=== PATIENT | female | born 1960 | race Caucasian/White ===

== ENCOUNTER 2019-03-15 17:00 | Inpatient (IN) | payer OTHER, MEDICAID ==
[~2019-03-15] VITALS: Ht 162.6 cm; Wt 53.2 kg
[2019-03-15 17:10] VITALS: BP 142/82
[2019-03-15 17:49] LABS: ABSOLUTE NEUTROPHILS 5.1 thou/uL (1.4-8.2); BASOPHILS 0.6 % (0.0-2.0); EOSINOPHILS 0.6 % (0.0-3.0); HEMATOCRIT 40.6 % (37.0-47.0); HEMOGLOBIN 13.8 gm/dL (12.0-15.0); LYMPHOCYTES 22.4 % (24.0-44.0); MCH 33.1 pg (26.0-34.0); MCHC 33.9 g/dL (28.0-37.0); MCV 97.8 fL (80.0-100.0); MONOCYTES 7.5 % (1.0-8.0); PLATELET COUNT 238 thou/uL (150-400); POLYS 68.9 % (36.0-66.0); RBC 4.15 mil/uL (4.20-5.00); RDW 13.3 % (10.5-14.5); WBC 7.4 thou/uL (4.0-11.0)
[2019-03-15 17:52] LABS: CALCIUM 9.2 mg/dL (8.5-10.1); CREATININE 0.6 mg/dL (0.6-1.0)
[2019-03-15 17:56] LABS: URINE BILIRUBIN NEGATIVE (Negative); URINE BLOOD NEGATIVE (Negative); URINE CLARITY CLEAR; URINE COLOR YELLOW; URINE GLUCOSE-RANDOM* NEGATIVE (Negative); URINE KETONES NEGATIVE (Negative); URINE LEUKOCYTES-REFLEX NEGATIVE (Negative); URINE NITRITE-REFLEX NEGATIVE (Negative); URINE PROTEIN (DIPSTICK) NEGATIVE (Negative); URINE SPECIFIC GRAVITY 1.025 (1.005-1.035)
[2019-03-15 17:58] LABS: ALBUMIN 4.4 g/dL (3.4-5.0); DIRECT BILIRUBIN 0.2 mg/dL (<0.1-0.2); TOTAL BILIRUBIN 0.9 mg/dL (<0.1-1.0); TOTAL PROTEIN 7.3 g/dL (6.4-8.2)
[2019-03-15 19:04] VITALS: BP 133/87
[2019-03-15 19:59] VITALS: BP 99/74
--- NOTE | 2019-03-16 04:54 | NUR ---
ARRIVED ON [facility] FLOOR @ 19:15 VIA W/C ACCOMPANIED BY ED PCN STAFF. STOOD AND TRANSFERRED TO BED WITH X2 ASSIST. CONFUSED AND ORIENTED TO SELF ONLY. REPEATEDLY ASKS WHERE HER FATHER AND WHERE HER ARE. ANXIOUS AND WORRIED. WHEN INFORMED THAT SHE IS IN [facility], SHE ASKS, AM I DYING? WITH ONE ON ONE REASSURANCE, CALMS DOWN, ONLY TO REPEAT THE SAME QUESTIONS A FEW MINUTES LATER. UNABLE TO SIGN HERSELF IN DUE TO CONFUSION AND DEMENTIA. CALL PLACED TO AND MESSAGE LEFT ON HOUSE PHONE REQUESTING HE CALL THE UNIT. WILL CALL HIM AGAIN @ 0600. HS MEDS PROVIDED CRUSHED IN ICE CREAM. TOOK THE CRUSHED MEDS AND THEN ON THE LAST SPOONFUL, BIT THE SPOON TO SHOW HER ANGER. TRIED TO STRIKE OUT AND HIT STAFF. HYDROCODONE 2.5MG/ACETAMINOPHEN 325 PROVIDED FOR BACK PAIN OF 08/17 @ 0030. FOLLOW UP ASSESSMENT SHOWED SLEEPING. BED IN LOW POSITION, BED ALARM SET, WILL CONTINUE TO MONITOR Q 12 MINUTES FOR PATIENT SAFETY.
[2019-03-16 09:21] VITALS: BP 119/47
--- NOTE | 2019-03-16 12:43 | NUR ---
0715 RESUMMED CARE FROM OVERNIGHT SHIFT, PATIENT IN DAY ROOM TALKING OUT LOUD ABOUT KILLING SISTER AND PARENTS. PATIENT ATE SOME BREAKFAST AND SPIT MEDICATION OUT OF MOUTH ONTO THE FLOOR. DR. GONZALEZ ORDERED OLANZAPINE 2.5 MG IM. THE NURSE FROM [facility] CALLED TO CHECK ON PATIENT AND TOLD ME TO PUT HER MEDICATION IN ICE CREAM CRUSHED. PATIENT GOT A SHOWER THIS MORNING TO HELP CALM HER AND FOR HYGEINE. STAFF AND I PUT PATIENT IN W/C DUE TO HER UNSTEADY GAIT. WILL CONTINUE TO MONITOR PATIENT FOR BEHAVIORS AND SAFETY.
--- NOTE | 2019-03-16 17:00 | NUR ---
RAMY spoke with pt's who gave a background hx of pt. She was diagnosed with dementia in 2016. He also said they never had children, but she has a close relationship with her siblings. He mentioned that carbohydrates tend to irritate pt, but protein calms her. RAMY scheduled a family meeting for 03/20 @ 1400 with him. SW team will continue to follow pt during her stay on this unit.
[2019-03-16 19:37] VITALS: BP 119/73
--- NOTE | 2019-03-17 00:01 | NUR ---
Care assumed of patient at 1915: Patient seated in w/c in dayroom at start of shift. Patient calm, pleasant and cooperative. Patient responds to name being said. Unable to state current location, date or situation. Speech is disorganized with flight of ideas. Patient had difficulty making eye contact with nurse during assessment. Unable to answer questions appropriately due to poor focus and concentration. No s/s of pain or discomfort. No s/s of SI/HI/AH/VH, paranoia or delusional behaviors. Patient took HS medication crushed with ice cream. Required to be fed but ate 100%. Patient started to push nurse away once but was re-oriented on where she was and became calm. Patient cooperative with nursing assessment and vital signs. No aggression or screaming shown observed. Patient was able to be transferred to bed, incontinent care provided. Patient resting quietly in bed.
[2019-03-17 08:00] VITALS: BP 135/84
--- NOTE | 2019-03-17 09:00 | NUR ---
Assumed care of patient this am. Patient in wheel chair with lap mirna on. Patient confused, not making sense when answering questions. Patient takes medications crushed with pudding or ice cream. Patients affect flat. Patient becomes irritable with cares. Patients assessment shows clear breath sounds, active bowel sounds, and s1 s2 heard with auscultation.
[2019-03-17 19:30] VITALS: BP 141/66
--- NOTE | 2019-03-17 21:58 | NUR ---
ASSUMED CARE ON 03/17/18 @ 19:15 FROM OFFGOING DAY SHIFT NURSE. IN DAY ROOM SITTING IN W/C WITH LAP OWEN. WHEN SPOKEN TO, SHE MAKES NONSENSICAL VERBAL SOUNDS. OCCASIONALLY ASKS WHERE IS MY SISTER......FATHER. ALLOWED ASSESSMENT, FINDINGS W/N/L, TOOK MEDS CRUSHED IN VANILLA PUDDING. REFUSED TO BE TOILETED, TRANSFERRED TO BED AND GIVEN INCONTINENT CARE. WITH CARES BECAME VERBALLY ABUSIVE AND HIT AT STAFF. IN BED WITH BED IN LOW POSITION, BED ALARM SET, WILL CONTINUE TO MONITOR Q 12 MINUTES FOR PATIENT SAFETY.
[2019-03-17 22:14] VITALS: BP 141/66
--- NOTE | 2019-03-18 05:24 | NUR ---
SLEPT 9 HOURS
--- NOTE | 2019-03-18 12:42 | NUR ---
PATIENT HAS BEEN UP AND OUT ON THE UNIT, SITTING IN WHEELCHAIR WITH LAPBUDDY IN PLACE FOR SAFETY. PATIENT IS ALERT, FORGETFUL, VERY CONFUSED, SPEACH IS NONSENSICAL. CONSTATANTLY STATES "I WANT TO FIND MY , I GUESS HE IS . YOU ARE A MAN, I WANT TO KILL MY SISTER". PATIENT REQUIRES ASSIST OF STAFF TO COMPLETE ADL. PATIENT IS INCONTINENT OF B&B, INCONTINENT CARE PROVIDED BY STAFF. PATIENT TOOK ALL MORNING MEDICATION CRUSHED IN PUDDING WITHOUT DIFFICULTY. PATIENT IS EATING MEALS, AND DRINKING FLUID FAIRLY WELL, FED BY STAFF. PATIENT DENIES SUICIDAL IDEATION. MOOD IS FRUSTRATED AND SAD. AFFECT IS BLUNTED. PATIENT CONSTANTLY ATTEMPTING TO GET OUT OF WHEELCHAIR UNASSISTED, REQUIRES CNNSTANT REDIRECTION. NO AGGRESSION OR AGITATION NOTED AT THIS TIME, NO SIGN OF ACUTE DISTRESS NOTED. WILL CONTINUE TO REDIRECT, AND MONITOR FOR SAFETY. SAFETY.
[2019-03-18 21:00] VITALS: BP 96/75
--- NOTE | 2019-03-19 04:13 | NUR ---
Assumed care of pt @ 1900. Pt calm et cooperative this shift. Denies SI/HI. Continuously calling out for this shift. Ambulates via w/c. Took medications crushed in ice cream this shift. VSWNL. Health assessment with no abnormalities other than previously recorded. Currently resting in bed with eyes closed. Will continue to monitor per protocol.
[2019-03-19 07:36] VITALS: BP 103/75
--- NOTE | 2019-03-19 12:42 | NUR ---
ASSUMED CARE OF PATIENT AT 0700 - PATIENT UP ON UNIT MOST OF THE DAY. DURING MORNING BREAKFAST ANXIOUS AND RESTLESS AND VOICING HER CONCERNS. DIFFICULT TO UNDERSTAND AT TIMES - WAS FIXATED ON SEEING HER . PATIENT RESPONDS TO EXPLANATION - MAY HAVE TO REPEAT REASSURANCE DUE TO FORGETFULNESS. PATIENT'S MEDICATION ADMINISTERED CRUSHED IN ICE CREAM. TOLERATED WELL AND ENJOYED. PATIENT'S VISITED AND WENT VERY WELL. PATIENT SO HAPPY AND ENJOYED SEEING -
--- NOTE | 2019-03-19 18:00 | H ---
[facility] [place] [address] HISTORY AND PHYSICAL Name: JOSÉ MIGUEL CHAPMAN Room #: 521A-A ADM IN M.R.#: [id number] Admission: 03/15/19 Attend Phys: Moy Donis DO Discharge: Date of : 56 Report #: [id number] THIS REPORT FOR: //name// CC: Moy Kenney DATE OF SERVICE: 03/15/2019 ATTENDING PHYSICIAN: Moy Donis DO. FRESH MEAT GRADER: Dr. Nick Enciso. REASON FOR ADMISSION: The patient in memory care at [facility] requiring a 1:1 for safety. Had Her hands around staf, forced herself on the ground and wants to lay down, thinks back is broken. HPI: Apparently, she was taken off Seroquel a week ago by nurse practitioner. Her , Ian Chapman is her DPOA, #[phone]. She was diagnosed with early Alzheimer's dementia in 2016. She stuck seeing Dr. Genaro Moreno at . Apparently, her primary care physician is Dr. Kenney. She was at [facility] in 01/2019. This is a 58-year-old female with a tragic early Alzheimer's disease, quite advanced at this point. remembers symptomatology going back about a decade ago. 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 The patient resides in a memory care at the [facility]. According to their records and some accompanying records from places like [facility], the patient has had a progressive deteriorating course. In an event that a couple of months back she had been taken to a neurologist, Ailyn Carroll, who changed medications and after that the patient has had aggressive behaviors as taken from 12/30/2018 Psychiatric note. The patient has been treated by at [facility] and Dr. Justo Xie at . Dr. Eric Monique apparently has been her primary care physician in the past. PAST MEDICAL HISTORY: Includes colonoscopy which showed hyperplastic colonic polyps and internal hemorrhoids; dementia dating back to 01/2010; uterine cancer status post hysterectomy in 2013; history of 5 heavy radiation treatments; history of allergies of asthma; recurrent urinary tract infections; urinary incontinence secondary to advanced dementia. PAST SURGICAL HISTORY: Polypectomy and hysterectomy. [address] [address] HISTORY AND PHYSICAL Name: JOSÉ MIGUEL CHAPMAN Room #: 521A-A [facility] IN .R.#: [id number] Admission: 03/15/19 Attend Phys: Moy Donis DO Discharge: Date of : 56 Report #: [id number] ALLERGIES: Documented TETRACYCLINE. PERSONAL HISTORY: for 30 years to her . No children. Denied history of tobacco, alcohol or recreational drug use. There is no other significant family history of Alzheimer's disease. She also has a history of Clostridium difficile. MEDICATIONS: [facility] are as follows: Ativan 0.5 mg 3 times a day, alprazolam 0.5 mg 1 time order, Depakote Sprinkles 125 mg capsule delayed release twice per day, hydrocodone 5/325 half tab q. 4 for pain, melatonin 3 mg at bedtime, fluticasone 50 mcg p.o. daily, donepezil 23 mg daily, folic acid 400 mcg p.o. daily, MiraLax 17 gram dose daily, bisacodyl 5 mg delayed release daily, B complex vitamin, Buspirone 10 mg by mouth 3 times a day, calcium carbonate 500 mg daily, memantine 10 mg by mouth twice per day. Some other ones, trazodone 50 mg at bedtime, omeprazole 20 mg daily, vitamin C 500 mg p.o. daily. The most recent notes were continues from 03/15/2019continues to have increased anxiety after administration of alprazolam about an hour when she was awake. She continued to scream and growl. Gait was unsteady, will not use wheelchair, although she believes she needs to lay down when she is already lying in bed. Records from Emergency Room visit yesterday: CBC was within normal limits except segmented neutrophils 68.9, lymphocytes 22.4, RBC 4.15. Chemistries: Sodium 140, potassium 4.0, chloride 104, bicarbonate 29, anion gap 9, BUN 16, creatinine 0.6, estimated GFR 102, glucose 104, calcium 9.2. Total bilirubin 0.9, direct bilirubin 0.2, AST 11, ALT 25, alkaline phosphatase 62, total protein 7.3, albumin 4.4. Urinalysis within normal limits. PHYSICAL EXAMINATION: VITAL SIGNS: Today, temperature 37.1, pulse 72, respirations 18, BP 119/47. GENERAL: Kyphotic, at times unsteady gait, but is ambulatory on her feet. MENTAL STATUS EXAMINATION: This is a well-developed, malodorous, ill-appearing female appearing much older than stated age. Attention limited. Concentration impaired. Speech slow with word finding difficulties. Mood, unspecified constricted, congruent. Denied SI or HI. Denied auditory, visual, or tactile hallucinations. In terms of thought content, believes ____ her is and believes that her father is here. She is grossly disorganized. Fund of knowledge well below average. FORMULATION: A 58-year-old female admitted for behavioral disturbance in the setting of aggressive early Alzheimer's dementia. [facility] [address] [place] [address] HISTORY AND PHYSICAL Name: JOSÉ MIGUEL CHAPMAN Room #: 521A-A ADM IN M.R.#: [id number] Admission: 03/15/19 Attend Phys: Moy Donis, Discharge: Date of : 56 Report #: [id number] PLAN: Evaluate, stabilize, obtain collateral. We will start her on olanzapine 2.5 mg b.i.d. with IM backup. Other adjustments I have already made is continue vitamin D for now, continue omeprazole, continue losartan 50 mg daily, folic acid 400 mg daily, Flonase. I discontinued donepezil due to the advanced AD, the calcium I continued for now, continued vitamin C, discontinued lorazepam, discontinued buspirone. ESTIMATED LENGTH OF STAY: 10-14 days. STRENGTHS: She is insured. She has supportive . WEAKNESSES: Aggressive related dementia I will give Dr. Kenney a call and see if he wants to participate in her care. Also from the ER, they got a review of systems: CONSTITUTIONAL: Denied fever, chills, malaise, unexplained weight change. EYES: Denies eye pain, visual change or discharge. HENT: Denies hearing changes, ear drainage, ear infections, ear pain, neck pain or neck stiffness. RESPIRATORY: Denies cough, shortness of breath, hemoptysis or respiratory distress. CARDIOVASCULAR: Denies chest pain, chest pain with exertion or edema. GASTROINTESTINAL: Denies abdominal pain, nausea, vomiting or diarrhea. GENITOURINARY: Denies burning, frequency or dysuria. MUSCULOSKELETAL: Denies back pain, joint pain, muscle weakness or myalgias. SKIN: Denies rash. NEUROLOGIC: Denies weakness, headache, loss of consciousness. I double checked her this morning and she continued to deny them. Weight 63.5 kilos. No EKG was done. <ELECTRONICALLY SIGNED> By: Moy Donis DO 03/19/19 1800 [id number] Moy Donis DO /nt
[2019-03-19 19:56] VITALS: BP 119/48
[2019-03-19 21:00] VITALS: BP 119/48
--- NOTE | 2019-03-20 04:02 | NUR ---
2000 Pt. sitting in Day Room conversing with other patients and staff. Pt.'s affect is flat and she appears to be anxious. She is asking "where her is". Pt. was reassured that she is okay and that her was okay and would be back tomorrow to visit. 2099 Pt. took meds crushed and in strawberry ice cream. Pt. was able to swallow meds without difficulty and no choking or coughing was noted. 2229 Pt. requested to go to bed and was assisted getting from W/C to bed and getting ready for overnight hours. 2400 Pt. resting quietly with eyes closed. Respirations even and on-labored. No signs or symptoms of distress noted.
[2019-03-20 09:03] VITALS: BP 118/65
[2019-03-20 09:05] VITALS: BP 114/42
--- NOTE | 2019-03-20 12:12 | NUR ---
HAS APPEARED RESTLESS/IRRITABLE WITH EPISODES OF YELLING AND AGITATION. WHEN GIVEN AM LIQUID GERD MEDICINE SPIT IT AT THIS NURSE YELLING "THAT TASTES LIKE SHIT" DURING 1;1 INTERACTION/AM ASSESSMENT SPEECH IS FRAGMENTED AND DIFFICULT TO FOLLOW BUT ANGRY FACIAL EXPRESSION AND LOUD TONE STATING "MY SISTER KILLED ME" "ROSARIO IS TRYIG TO TAKE HIM" "THEY MURDERED MY FATHER" BECOMES INCREASINGLY AGITATED AND LOUD THROUGHOUT INTERACTION/ ATTEMPTING TO STANMD UP ON OWN DESPITE LAP BELT AND UNSTEADY GAIT. NORCO 5/325 1/2 TAB GIVEN PO PRN AT 0900 FOR CO BACK PAIN.
--- NOTE | 2019-03-20 12:45 | NUR ---
Assess due to request for protein product on trays. Admit to [facility] for behavior disturbance. Hx alzheimers, uterine cancer. Visit with pt in dining room. Not able to answer all questions, but did state not a picky eater. Could not recall a usual wt. Does not present with fat/muscle wasting. Intake has been 50-100% of meals. Repeatedly asking where is. On several vitamin supplements. Will clarify ordered protein product ordered as ensure enlive, and send bid. Low nutrition risk
[2019-03-20 20:14] VITALS: BP 129/65
[2019-03-20 20:45] VITALS: BP 129/65
--- NOTE | 2019-03-21 04:42 | NUR ---
03/20/19 @ 2100 Pt. up in Day Room at start of shift. Pt. was not interacting with anyone nor was she watching the TV. Pt.'s affect was very anxious and she sounded distressed when speaking. Pt. was asking for her and was stating that she couldn't find him. Speech mumbled. No s/s of delusional or paranoid behaviors. Pt. alert to self only. No verbalizations of SI/HI/AH/VH. Speech can be nonsensical at times. Pt. took medications crushed with ice cream. No choking or coughing noted with ice cream.
[2019-03-21 07:35] VITALS: BP 128/62
--- NOTE | 2019-03-21 10:30 | NUR ---
SW and psych doctor met with pt's . He did not have any concerns for SW; however, he did say pt needed to bathe. RAMY relayed this message to pt's nurisng staff. SW team will continue to follow pt during her stay on this unit.
--- NOTE | 2019-03-21 17:54 | NUR ---
HERE AND WAS CONCERNED ABOUT OLANZAPINE AND WANTED TO KNOW IF THIS WAS REVIEW BY THE DR. HE STATES SHE HAS BEEN FALLING FROM THIS MEDICATION HER LEGS BUCKLE.
[2019-03-21 20:00] VITALS: BP 117/77
--- NOTE | 2019-03-21 21:15 | NUR ---
HAS HAD EPISODES OF INCREASED RESTLESSNESS AND ANXIETY THIS SHIFT-ASSESSED TO BE SLIGHTLY LESS THAN LAST 2 DAYS-TOOK AM MEDICATIONS CRUSHED IN ICE CREAM AND ALLOWED CLOTHING CHANGE AND ORAL CARE/PERINEAL CARE WITH MILD/MOD AGITATION YELLS OUT AND WILL GRAB ON TIGHTLY TO STAFF ARMS BUT NO ATTEMPTS TO BITE OR PINCH TODAY WITH CARES-INCONTINENT CARE Q 2-4 HOURS AND INCONTINENT OF SMALL FORMED STOOL X1 AND URINE X2-NO OPEN AREAS TO COCYX NOTED. SLIGHT REDNESS AND BARRIER OINTMENT APPLIED. REQUIRED ASSIST AT MEALTIME BUT WILL EAT APPROX 40-50 PERCENT WITH COAXING AND TAKES ICE CREAM AND SUPPLEMENTS WELL. MEDS GIVEN CRUSHED WITH ICE CREAM. DENIES C/O PAIN. NO SEDATION NOTED-PLACED IN GERICHAIR BRIEFLY FOR POSITION CHANGE BUT STATES DOESN'T LIKE IT AND HAD INCREASE IN YELLING,AGITATION SO PLACED BACK IN WC. VS STABLE.DOES ASK FREQUENTLY FOR PARDEEP HER AND WILL HAD 2 EPISODES OF TEARFULNESS WHERE SHE STATES "I CAN'T TAKE IT ANYMORE" OR "IT'S NO GOOD" BUT WILL CALM WITH SUPPORT AND REASSURANCE FROM NURSING STAFF. REMAINS ON FALL PRECAUTIONS.
--- NOTE | 2019-03-22 01:08 | NUR ---
ASSUMED CARE ON 03/21/19, UP IN W/C WITH LAP BELT IN PLACE IN THE DAY ROOM. PROPELLS SELF AROUND IN W/C. COOPERATED WITH ASSESSMENT, HRRR, LUNGS CTA, ABD NORMOACTIVE BOWEL SOUNDS AND A ROUND ABDOMEN. ALERT, ORIENTED TO SELF ONLY. SAYS, IM HERE BECAUSE OF MY PARENTS. GIVEN TYLENOL 650 FOR GENERAL PAIN OF 4/10 @ 2100, IN BED ASLEEP UPON FOLLOW UP. BED IN LOW POSITION, BED ALARM SET, WILL CONTINUE TO MONITOR Q 12 MINUTES FOR PATIENT SAFETY.
[2019-03-22 02:41] VITALS: BP 117/77
--- NOTE | 2019-03-22 06:04 | NUR ---
slept 6.9 hours
[2019-03-22 08:00] VITALS: BP 124/80
[2019-03-22 09:05] VITALS: BP 124/80
--- NOTE | 2019-03-22 11:19 | NUR ---
Assumed care of patient this am. Patients affect is flat. Patient states that she wants to kill someone, but RN is unsure of who she speaks of. Patient also states that she would like to . Patient also states that she wants to see her . Patients attention span is very short. Patient redirects easily. Patient ambulates via wheelchair. Patient takes medications crushed in pudding. Patients assessment shows clear breath sounds, active bowel sounds, and s1 s2 heard with auscultation.
[2019-03-22 19:48] VITALS: BP 166/133
[2019-03-22 22:21] VITALS: BP 163/133
--- NOTE | 2019-03-23 02:47 | NUR ---
1435 AM RESUMMED CARE FROM DAY SHIFT, PATIENT IN DAY ROOM TALKING TO SELF ASKING WHERE IS HER . PATIENT WHILE GETTING CLEANED UP FOR BED BIT A STAFF MEMBER. PATIENT TOOK MEDICATION WITHOUT INCIDENCE, PATIENT REDIRECTABLE. WILL CONTINUE TO MONITOR FOR BEHAVIORS AND SAFETY.
--- NOTE | 2019-03-23 07:30 | NUR ---
Assumed care of patient this am. Patient pleasantly confused and asking about her sister and . Patients affect is flat. Patient ambulates via wheelchair. Patient adherent with medications. Patient takes medications crushed in pudding. Patient denies pain. Patient denies hi/si. Patients assessment shows clear breath sounds, active bowel sounds, and s1 s2 heard with auscultation.
[2019-03-23 08:00] VITALS: BP 121/48
--- NOTE | 2019-03-23 10:57 | NUR ---
RAMY faxed updates to Jose L with [facility] for pt. RAMY team will continue to follow pt during her stay on this unit.
[2019-03-23 13:16] VITALS: BP 121/48
[2019-03-23 19:30] VITALS: BP 145/104
--- NOTE | 2019-03-23 23:34 | NUR ---
ASSUMED CARE ON 02/20/19 @ 19:15, UP IN LIMA CHAIR IN THE DAY ROOM. WHEN SPOKEN TO, SHE ASKS WHERE IS MY . ABLE TO REDIRECT, IN A FEW MINUJTES ASKS WHERE IS MY SISTER, THEN SAYS SHE IS EVIL, I WISH SHE WOULD . COOPERATED WITH ASSESSMENT, ALERT & ORIENTED X1.5-2 TO OWN PERSON (NAME AND ), CANNOT GIVE CURRENT DATE, LOCATION OR PRESIDENT. TOOK MEDS CRUSHED IN ENSURE CHOCOLATE PUDDING, ATE ENTIRE PUDDING CUP, HAD TO BE FED. TRANSFERRED FROM LIMA CHAIR TO BED X2 STAFF ASSIST. WOULD NOT COOPERATE WITH STANDING TO TRANSFER, LYING DOWN NOR ANY COOPERATION, HITTING AND CUSSING AT STAFF. INCONTINENT OF BLADDER. BED IN LOW POSITION, BED ALARM SET, WILL CONTINUE TO MONITOR Q 12 MINUTES FOR PATIENT SAFETY.
[2019-03-24 02:47] VITALS: BP 145/104
--- NOTE | 2019-03-24 06:00 | NUR ---
SLEPT 8 HOURS
[2019-03-24 07:08] LABS: HBsAG-EMPLOYEE EXPOSURE Negative (Negative); HCV AB-EMPLOYEE EXPOSURE <0.1 (0.0-0.9)
[2019-03-24 08:42] VITALS: BP 120/56
[2019-03-24 09:45] VITALS: BP 120/56
[2019-03-24 10:14] VITALS: BP 120/56
--- NOTE | 2019-03-24 12:26 | NUR ---
0647 RESUMMED CARE FROM OVERNIGHT SHIFT, PATIENT IN DAY ROOM INTERACTING WITH A PATIENT. PATIENT ATE BREAKFAST AND TOOK MEDICATION WITHOUT INCIDENCE. PATIENT GETS IRRITATED WHEN HYGIENE IS PERFORMED. PATIENT OTHERWISE IS COOPERATIVE AND REDIRECTABLE. WILL CONTINUE TO MONITOR PATIENT FOR SAFETY AND BEHAVIORS.
[2019-03-24 19:15] VITALS: BP 123/74
--- NOTE | 2019-03-24 23:03 | NUR ---
Care assumed of patient at 1915: Patient seated in w/c in dayroom with at start of shift. Patient assisted to bed once left. Required mod assist x2 for transfer and toileting hygiene. Incontinent of bladder. Patient yelling out and cursing, no physical aggression observed. Patient presents with perplexed look. Yelling "I want my daddy?" when asked any questions. Appeared restless and anxious. Patient took HS medication crushed in ice cream this PM. Ate 50% of ice cream provided. Reported it was too cold and didn't want anymore. Patient alert and oriented to person only. Patient easier to re-direct that she was in the hospital and her would come visit tomorrow. Appeared satisfied with those answers to address her concerns. Nurse spent several minutes with patient to calm her then she was able to fall to sleep without much difficulty. Patient has been able to rest quietly since.
[2019-03-25 07:20] VITALS: BP 104/55
--- NOTE | 2019-03-25 09:15 | NUR ---
PT. UP IN W/C IN DINING AREA WHEN THIS RN ASSUMED CARE AT 0715. SHE IS SITTING IN A W/C WITH A CHAIR ALARM. SHE TRIES TO GET UP PERIODICALLY AND NEEDS REMINDED TO SIT DOWN. SHE WILL QUICKLY SAY, "I CAN'T FIND MY , WHERE IS HE?" SHE GETS REMINDED THAT HERE IS NOT HERE AT THE HOSPITAL WITH HER. SHE IS THE ONLY ONE HERE AT THIS TIME. TOOK HER MEDICATIONS CRUSHED AND IN APPLESAUCE. SHE KEP REPLYING THAT THE APPLESAUCE WAS NOT SWEET ENOUGH AND WAS "NASTY". SHE DID TAKE HER MEDICATION THOUGH.
--- NOTE | 2019-03-25 10:39 | NUR ---
ASSUMED CARE AT 0700 THIS MORNING. SHE AMBULATED TO THE DINING ROOM WITH HER WALKER. SHE REMAINS WHINNY BUT STILL WILLING TO DO THINGS FOR HERSELF. SHE ATE FAIR. TOOK HER MEDICATIONS WITHOUT DIFFICULTIES. SHE KEPT ASKING FOR STAFF TO "UNLOCK HER DOOR" WHEN THINGS WERE NOT LOCKED. SHE KEPT FIXATING ON THE STOOL, STATING IT WAS PLUGGED UP WHEN IN FACT IT WAS NOT AT ALL. SHE COULD NOT REST IN HER ROOM THIS MORNING. HER AFFECT REMAINS FEARFUL, SULLEN, WHINNY. HER MOOD IS SAD, WHINNY.
[2019-03-25 10:45] VITALS: BP 123/74
[2019-03-25 21:01] VITALS: BP 140/94
--- NOTE | 2019-03-26 04:25 | NUR ---
Assumed care of pt @ 1900. Pt calm et cooperative this shift. Pt mildly agitated when "looking for my daddy" later in shift. Took medications crushed in pudding without difficulty. Ambulates via w/c. VSWNL. Health assessment with no abnormalities at present time. Unable to assess SI/HI due to incoherence in sentence structure at the present time. Currently resting in bed with eyes closed. Will continue to monitor per protocol.
[2019-03-26 05:44] LABS: ABSOLUTE NEUTROPHILS 2.8 thou/uL (1.4-8.2); BASOPHILS 0.4 % (0.0-2.0); EOSINOPHILS 1.4 % (0.0-3.0); HEMATOCRIT 38.2 % (37.0-47.0); HEMOGLOBIN 13.1 gm/dL (12.0-15.0); LYMPHOCYTES 35.4 % (24.0-44.0); MCH 33.5 pg (26.0-34.0); MCHC 34.2 g/dL (28.0-37.0); MCV 97.7 fL (80.0-100.0); MONOCYTES 8.9 % (1.0-8.0); PLATELET COUNT 166 thou/uL (150-400); POLYS 53.9 % (36.0-66.0); RBC 3.91 mil/uL (4.20-5.00); WBC 5.2 thou/uL (4.0-11.0)
[2019-03-26 06:05] LABS: ALBUMIN 3.6 g/dL (3.4-5.0); CALCIUM 8.9 mg/dL (8.5-10.1); CREATININE 0.6 mg/dL (0.6-1.0); TOTAL BILIRUBIN 0.8 mg/dL (<0.1-1.0); TOTAL PROTEIN 6.6 g/dL (6.4-8.2)
[2019-03-26 07:35] VITALS: BP 138/58
[2019-03-26 12:26] VITALS: BP 138/58
--- NOTE | 2019-03-26 14:09 | NUR ---
1410 RESUMMED CARE FROM OVERNIGHT SHIFT THIS AM, PATIENT IN DAYROOM YELLING WHERE IS HER DAD AND . PATIENT ATE BREAKFAST AND TOOK MEDICATION CRUSHED IN PUDDING. PATIENT WAS CALMER THIS AFTERNOON AND IS REDIRECTABLE. PATIENT IS STILL CONFUSED AND RAMBLES WHEN TALKING, SHE IS UNABLE TO TELL YOU IF SHE HAS SI/HI OR AH. PATIENT STILL GETS COMBATIVE DURING HYGEINE, WILL CONTINUE TO MONITOR PATIENT FOR SAFETY AND BEHAVIORS.
[2019-03-26 20:17] VITALS: BP 126/92
--- NOTE | 2019-03-27 05:27 | NUR ---
ASSUMED CARE OF THIS PATIENT AT 1900 FOR BANQUET SERVER. SPEECH IS NON-SENSICAL, OTHER THAT TO ASK FOR HER DADDY. AFFECT ANXIOUS, FRETFUL. COOPERATIVE WITH ASSESSMENT PROCESS, WITH MINIMAL PARTICIPATION. TOOK PO MEDS CRUSHED IN ICE CREAM. WILL CONTINUE TO MONITOR
[2019-03-27 08:44] VITALS: BP 135/81
[2019-03-27 11:00] VITALS: BP 135/81
--- NOTE | 2019-03-27 14:09 | NUR ---
RAMY faxed updates to pt's facility. SW team will continue to follow pt during her stay on this unit.
[2019-03-27 19:30] VITALS: BP 111/58
--- NOTE | 2019-03-28 05:04 | NUR ---
Assumed care of pt @ 1900. Pt calm et cooperative this shift. Took medications crushed in pudding without difficulty. Continues to cry out that she can't find her "daddy" but settles down when talked to calmly et informed that her father is not here. VSWNL. Health assessment with no abnormalities noted at present time. Ambulates via w/c. Denies SI/HI. Currently resting in bed with eyes closed. Will continue to monitor per protocol.
[2019-03-28 09:20] VITALS: BP 111/58
--- NOTE | 2019-03-28 09:39 | NUR ---
ASSUMED CARE AT 0700 THIS MORNING. PT. ON THE UNIT IN A RECLINING CHAIR. SHE IS AWAKE. A&O X1. SHE CONTINUES TO ASK FOR HER . IT IS EXPLAINED TO HER THAT HE IS NOT HERE CURRENTLY BUT WILL VISIT LATER TODAY. SHE IS UNABLE TO RETAIN ANY INFORMATION GIVEN TO HER. SHE WILL ASK THE SAME QUESTIONS OVER AND OVER AGAIN. SHE TAKES HER MEDICATIONS CRUSHED AND IN PUDDING. SHE IS TOTAL CARE AND NEEDS TO BE FED, CHANGED, ETC. SHE WILL AT TIMES TELL STAFF THAT SHE NEEDS TO USE THE BATHROOM AND WILL DO SO AT THAT TIME. OTHERWISE SHE IS INCONTINENT.
[2019-03-28 10:55] VITALS: BP 118/78
--- NOTE | 2019-03-28 13:31 | NUR ---
Followup: Remains on [facility] unit. Eating 75-100% all meals and taking about 50-100% of ensure enlive supplements. Wt is up 1 lb from admit. No new nutrition interventions. Vitamins C, E, and folic acid discontinued. Remains on Vitamin D. Low nutrition risk
[2019-03-28 19:43] VITALS: BP 135/80
[2019-03-29 00:20] VITALS: BP 135/80
--- NOTE | 2019-03-29 02:00 | NUR ---
1927 RESUMMED CARE FROM DAY SHIFT, PATIENT WAS IN ROOM IN BED LYING QUIETLY. PATIENT TOOK MEDICATION CRUSHED WITH PUDDING, PATIENT NOT COMBATIVE WHEN DOING HYGEINE. PATIENT CANNOT VERBALIZE WHEN ASKED IF SHE FELT SI/HI/AH/VH SHE JUSTS SAYS WHAT I DON'T UNDERSTAND. PATIENT WENT TO SLEEP AFTER MEDICATION, PATIENT CANNOT AMBULATE ON HER OWN SHE NEEDS ASSIST WITH ADL'S, FEEDING AND USES A WILL CHAIR. WILL CONTINUE PATIENT FOR SAFETY AND BEHAVIORS.
--- NOTE | 2019-03-29 07:30 | NUR ---
Assumed care of patient this am. Patient is mostly calm with intermittent yelling/growling. Patients affect is flat. Patient denies pain. Patient denies hi/si. Patient asks about her daddy and her . Patient ambulates via wheel chair. Patient takes medications crushed in pudding. Patients assessment shows clear breath sounds, active bowel sounds, and s1 s2 heard with auscultation. We will continue to monitor.
[2019-03-29 07:40] VITALS: BP 137/84
[2019-03-29 08:00] VITALS: BP 137/84
--- NOTE | 2019-03-29 12:05 | NUR ---
Date of Admission: 03/15/19 Date of Activity Therapy Assessment: 03/18/19 Activity Goal: Increase engagement Initial Goal: 1 Group activity/day Weekly progress towards goal: On track Group participation level: Needs some assistance Behaviors observed: Patient is primarily able to tolerate one recreational therapy group per day. Participation is minimal d/t cognition. Pt struggles to remain seated at times and has outbursts as well. group per day Plan: No change towards goal
--- NOTE | 2019-03-29 14:13 | NUR ---
RAMY contacted Aixa Ham with [facility] to arrange discharge for pt. No answer. RAMY lft msg on her vm. RAMY team will continue to follow pt during her stay on this unit.
--- NOTE | 2019-03-29 15:56 | NUR ---
RAMY spoke with Bri Stern with [facility] about discharging pt. Bri said she will arrange transportation for pt to be picked up at 10am on 03/30. RAMY gave her a couple recommendations including that staff be patient with pt even when she is toileting, and that her bedtime is 7pm; [facility] staff have found that after 7 pt becomes agitated and is more likely to bite. Bri said ok. RAMY contacted [facility] and provided an update. He said he will be on the unit this evening to visit pt. SW team will continue to follow pt during her stay on this unit.
--- NOTE | 2019-03-29 16:33 | NUR ---
RAMY spoke with Aixa Ham who said she is concerned about pt returning. She said that to her from the notes pt does not seem to have improved. RAMY explained to her that pt is no longer biting and has not done so since Wednesday. Aixa said pt has not had a biting problem there, but from the notes she is still yelling and "combative with cares." SW provided education on dementia and that pt combativeness does not mean she is attacking staff, more like she is resisting the help. SW also explained that she does ask for her , opposed to yelling out, and that staff respond to her in a patient and gentle way. Pt seems to accept that approach. RAMY also gave her the suggestions of being as patient as possible with pt and that her bedtime is 7pm. Aixa said that she is not sure at this time they can take pt back. RAMY explained that the psych doctor believes pt is ready for d/c. She also asked Aixa what should happen if insurance stops paying for pt's stay what does she want done, and does that mean pt does not have a place to live anymore? Aixa responded that she is not saying that she is not taking pt back at all, but that she needs to consult with her team. She will contact SW team in the morning. RAMY provided an update to the [facility] director. SW team will continue to follow pt during her stay on this unit.
[2019-03-29 19:39] VITALS: BP 147/82
[2019-03-29 22:51] VITALS: BP 147/82
--- NOTE | 2019-03-30 00:32 | NUR ---
1925 RESUMMED CARE FROM DAY SHIFT, PATIENT IN DAY ROOM SITTING QUIET IN W/C. PATIENT ATE SNACK AND TOOK MEDICATION CRUSHED IN APPLESAUCE WITHOUT INCIDENCE. PATIENT IS UNABLE TO VERBALIZE IF SHE HAS SI/HI/AH/VH AT PRESENT DUE TO MENTAL STATUS. PATIENT WENT TO BED AROUND 1999 AND WAS SLEEPIMG COMFORTABLY. PATIENT'S LUNGS ARE CLEAR, BOWEL SOUNDS PRESENT, NO PAIN, PATIENT IS SUPPOSE TO DC [facility]OMMOROW BACK TO [facility]. WILL CONTINUE TO MONITOR PATIENT FOR SAFETY AND BEHAVIORS.
[2019-03-30] MEDS ORDERED: FELODIPINE 5 MG5 M1 PO (08:53)
[2019-03-30] MEDS ORDERED: COZAAR 50 MG TA50 M1 PO (08:54)
[2019-03-30] MEDS ORDERED: DEPAKOTE SPRIN125 MG PO (08:55)
[2019-03-30] MEDS ORDERED: TRAZODONE HCL50 MG PO (08:55)
[2019-03-30] MEDS ORDERED: LATUDA20 MG PO (08:56)
[2019-03-30] MEDS ORDERED: NAMENDA 5 MG TAB5 M1 PO (08:56)
[2019-03-30] MEDS ORDERED: FLONASE 0.05%50 MCG NASAL (08:58)
[2019-03-30] MEDS ORDERED: BISACODYL10 MG RECTAL (08:58)
[2019-03-30] MEDS ORDERED: PROTONIX40 M1 PO (08:59)
[2019-03-30] MEDS ORDERED: VITAMIN D325 MCG PO (08:59)
[2019-03-30 09:09] VITALS: BP 105/51
--- NOTE | 2019-03-30 13:52 | NUR ---
ATTEMPTED TO CALL REPORT TO [facility] AT APPROX 1130-SENT TO GERARDO OSEGUERA AND MESSAGE LEFT. AT APPROX. 1330 CALL RECEIVED FROM RICARDO AT [facility] AND NURSING REPORT GIVEN- PARDEEP CONTACTED VIA CELL AND DC INSTRUCTIONS FAXED TO HIM PER REQUEST. PT BELONGINGS AND PACKET SENT WITH PT-DC'D VIA ACCOMPNIED BY [employer] [facility]. ALERT/CONFUSED AND IN NO APPARENT DISTRESS ATT CHRISTOPHER OF DC
--- NOTE | 2019-03-30 17:21 | NUR ---
SW D/C Note SW received a call from Bri Stern stating they will accept pt back and asked what time should she send transportation. They agreed on 1300 p/u time; she is sending [employer] transportation. RAMY faxed discharge documents to Aixa Ham with [facility]. RAMY submitted this to pt's file. No other needs for SW team to address at this time.
--- NOTE | 2019-03-31 20:35 | D ---
[facility] [place] [address] DISCHARGE SUMMARY Name: JOSÉ MIGUEL MONAHAN Room #: 521A-A [facility] IN M.R.#: [id number] Admission: 03/15/19 Attend Phys: Moy Donis DO Discharge: 03/30/19 Date of : 56 Report #: [id number] THIS REPORT FOR: cc: Adryan Kenney Ryan D. DO Kerstein, Andrew H. DO ~ THIS REPORT FOR: //name// CC: Moy Kenney DATE OF SERVICE: 03/30/2019 INPATIENT PSYCHIATRIC DISCHARGE SUMMARY ATTENDING PHYSICIAN: Moy Donis DO. HANDICRAFT OR [employer] MANAGER AT THE TIME OF DISCHARGE: Jose E Cabrera MD DISCHARGE DIAGNOSES: Major neurocognitive disorder due to early Alzheimer's disease with behavioral disturbance, improved. Medical comorbidities include hypertension, currently treated with antihypertensive medications, gait disturbance caused by both disease progression and possible drug effect. She will be discharging back to the facility that sent her to [facility]. Psychiatric and medical care to be performed by receiving facility. DISCHARGE DIET: Regular with Ensure Enlive twice per day for supplementation. DISCHARGE MEDICATIONS: As follows: Amlodipine 5 mg p.o. daily for hypertension, losartan 50 mg p.o. daily for hypertension with parameters of mmHg systolic and hold should be above 60. Depakote Sprinkles 375 mg strength p.o. b.i.d. The patient had a blood level on 03/24/2019 of 80. Trazodone 75 mg p.o. at bedtime for sleep that could be made p.r.n. at [facility]. Vilazodone 120 mg p.o. 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 Memantine 10 mg p.o. b.i.d. for cognitive enhancement. The patient's requested this be continued, though her dementia is quite advanced that its clinical benefit will be in question, Flonase 1 spray each nostril daily for allergic rhinitis, bisacodyl rectal suppository for constipation p.r.n. daily, pantoprazole 40 mg p.o. daily for GERD, cholecalciferol 1000 international units p.o. daily for supplementation to help maintain adequate vitamin D level. LABORATORY DATA: Significant laboratories this admission are as follows: CBC done on 03/26/2019 within normal limits grossly. Chemistries last done on 03/26/2019 with a BUN of 23, anion gap of 6, sodium 138, potassium 4.3, chloride 102, bicarbonate 30, glucose 91, calcium 8.9, total bilirubin 0.8, AST 12, ALT 17, alkaline phosphatase 55, total protein 6.6, albumin 3.6. Urinalysis done on [address] [address] DISCHARGE SUMMARY Name: JOSÉ MIGUEL MONAHAN Room #: 521A-A [facility] IN M.R.#: [id number] Admission: 03/15/19 Attend Phys: Moy Donis DO Discharge: 03/30/19 Date of : 56 Report #: [id number] 03/15/2019 was negative. Toxicology again Depakote level of 80 on 03/24/2019. The patient early on had an incident or two of biting staff, so she received exposure laboratories. Hepatitis B surface antigen was negative, hepatitis C antibody screen was less than 0.1, which I believe is a presumed negative, nonreactive HIV 1 and 2 rapid screen. HIV P24 antigen was nonreactive. No neuro imaging done this admission. REASON FOR ADMISSION: Back on the 03/15/2019 was as follows: The patient was a direct admit from [facility]. The patient had been having increasing agitation, had been sent out a month or 2 prior to [place] and came back without material improvement. The patient unfortunately has had a marked decline over the last several years with onset of symptoms in her early 50s. I elected to treat her with Depakote regimen, this was at a subtherapeutic dose on admission. I was initially treating her with olanzapine and her stated she had had some tremulous type symptoms and for that requested therapeutic change, so I went with Latuda. She had had a good 4-5 days of good behavior at the time of discharge. On the day of discharge, the patient was only oriented to self, could stand and pivot, but not fairly ambulatory, otherwise, in a wheelchair. VITAL SIGNS: On the day of discharge are as follows: Temperature 36.2, pulse 76, respirations 16, BP 105/51, O2 sat 98%. MENTAL STATUS EXAMINATION: Seated station, appeared unkempt. Attention impaired. Concentration impaired. Speech otherwise spontaneous. Mood and affect congruent, variably from calm and happy to constricted. No psychomotor retardation. Occasional psychomotor agitation. Denied SI or HI. Memory grossly impaired. Insight impaired. Judgment impaired. Fund of knowledge well below average. PROGNOSIS: For this patient is quite guarded to poor given her rapid decline. The was advised of evolving role for hospice and that is certainly possible in the next 6-12 months. <ELECTRONICALLY SIGNED> By: Moy Donis, 03/31/192034 20 0411 Moy Donis, /nt
== END 2019-03-30 13:30 | DRG 57 ==
LOC: ER 17:00 → EROBS 18:42 → SBH 18:42
PROVIDERS: Emergency Medicine; Nurse Practitioner Family; Psychiatry & Neurology Psychiatry; ADMIT Psychiatry & Neurology Psychiatry
DX: G30.9 Alzheimer's disease, unspecified (principal); F01.51 Vascular dementia, unspecified severity, with behavioral disturbance; F02.80 Dementia in other diseases classified elsewhere, unspecified severity, without behavioral disturbance, psychotic disturbance, mood disturbance, and anxiety; F01.50 Vascular dementia, unspecified severity, without behavioral disturbance, psychotic disturbance, mood disturbance, and anxiety; F91.9 Conduct disorder, unspecified; F32.9 Major depressive disorder, single episode, unspecified; I10 Essential (primary) hypertension; J45.909 Unspecified asthma, uncomplicated; K64.8 Other hemorrhoids; R63.5 Abnormal weight gain; Z68.20 Body mass index [BMI] 20.0-20.9, adult; Z87.19 Personal history of other diseases of the digestive system; Z87.440 Personal history of urinary (tract) infections; Z88.8 Allergy status to other drugs, medicaments and biological substances; Z90.710 Acquired absence of both cervix and uterus; Z88.1 Allergy status to other antibiotic agents; Z79.891 Long term (current) use of opiate analgesic; Z79.899 Other long term (current) drug therapy
CPT/HCPCS: 10880